=== PATIENT | female | born 1945 | race Caucasian/White ===

== ENCOUNTER 2020-09-19 18:05 | Observation (INO) | payer MEDICARE, OTHER ==
[2020-09-19 18:42] LABS: #Basophils 0.1 thou/uL (0.0-0.2); #Eosinphils 0.3 thou/uL (0.0-0.7); #Lymphocytes 2.9 thou/uL (1.20-3.40); #Monocytes 0.6 thou/uL (0.11-0.59); #Neutrophils 3.8 thou/uL (1.40-6.50); %Basophils 1.1 % (0.0-1.0); %Lymphocytes 38.1 % (21.0-51.0); %Monocytes 8.3 % (0.0-10.0); %Neutrophils 48.6 % (42.0-75.0); Hemoglobin 13.3 g/dL (12.0-16.0); Mean Corpuscular HGB CONC 34.2 g/dL (32.0-36.0); Mean Corpuscular Hemoglobin 30.5 pg (27.0-31.0); Mean Corpuscular Volume 89.2 fL (78.0-98.0); Mean Platelet Volume 7.9 fL (7.4-10.4); Platelet Count 214 thou/uL (130-400); Red Blood Cell (RBC) Count 4.34 mill/uL (4.20-5.40); White Blood Cell (WBC) Count 7.7 thou/uL (4.8-10.8)
[2020-09-19 19:05] LABS: ALT (SGPT) 25 U/L (8-55); AST (SGOT) 20 U/L (5-34); Alkaline Phosphatase 68 U/L (40-110); Anion Gap 15 mmol/L (10-20); BUN (Urea Nitrogen) 19 mg/dL (9.8-20.1); Bilirubin, Total 0.3 mg/dL (0.2-1.2); Calc. Creatinine Clearance 0 mL/min (70-130); Calcium 9.5 mg/dL (7.8-10.44); Carbon Dioxide 26 mmol/L (23-31); Chloride 105 mmol/L (98-107); Globulin 2.8 g/dL (2.4-3.5); Glucose 130 mg/dL (83-110); Lipase 28 U/L (8-78); Potassium 4.7 mmol/L (3.5-5.1); Protein, Total 6.8 g/dL (5.8-8.1); Sodium 141 mmol/L (136-145)
[2020-09-19 22:06] LABS: Troponin I 0.012 ng/mL (< 0.028)
[2020-09-19] MEDS ORDERED: Aspirin Chewable 81 MG TAB PO SCH (23:00)
[2020-09-19] MEDS ORDERED: Ondansetron ODT 4 MG TAB SL PRN (23:00)
[2020-09-19] MEDS ORDERED: Ondansetron PF 4 MG/2 ML Vial IVP PRN (23:00)
[2020-09-19 23:14] VITALS: BMI 29.5
[2020-09-20 01:28] LABS: Troponin I 0.019 ng/mL (< 0.028)
[2020-09-20 04:49] LABS: SARS-CoV-2 PCR by NAA Not Detected (NotDetected)
[2020-09-20 04:59] LABS: #Basophils 0.1 thou/uL (0.0-0.2); #Eosinphils 0.3 thou/uL (0.0-0.7); #Lymphocytes 3.2 thou/uL (1.20-3.40); #Monocytes 0.7 thou/uL (0.11-0.59); #Neutrophils 3.3 thou/uL (1.40-6.50); %Basophils 0.9 % (0.0-1.0); %Eosinophils 3.8 % (0.0-10.0); %Lymphocytes 42.2 % (21.0-51.0); %Monocytes 9.3 % (0.0-10.0); %Neutrophils 43.8 % (42.0-75.0); Hemoglobin 12.4 g/dL (12.0-16.0); Mean Corpuscular HGB CONC 33.1 g/dL (32.0-36.0); Mean Corpuscular Hemoglobin 29.7 pg (27.0-31.0); Mean Corpuscular Volume 89.7 fL (78.0-98.0); Mean Platelet Volume 8.3 fL (7.4-10.4); Platelet Count 212 thou/uL (130-400); RBC Distribution Width 11.9 % (11.5-14.5); Red Blood Cell (RBC) Count 4.17 mill/uL (4.20-5.40); White Blood Cell (WBC) Count 7.5 thou/uL (4.8-10.8)
[2020-09-20 05:21] LABS: Anion Gap 10 mmol/L (10-20); BUN (Urea Nitrogen) 20 mg/dL (9.8-20.1); Calc. Creatinine Clearance 70 mL/min (70-130); Calcium 9.1 mg/dL (7.8-10.44); Carbon Dioxide 28 mmol/L (23-31); Chloride 106 mmol/L (98-107); Glucose 139 mg/dL (83-110); Potassium 4.2 mmol/L (3.5-5.1); Sodium 140 mmol/L (136-145)
[2020-09-20] MEDS: hydrALAZINE 20 MG/ML VIAL SLOW IVP PRN ×2 (08:19→16:29)
[2020-09-20] MEDS: Aspirin Chewable 81 MG TAB PO SCH (08:52)
[2020-09-20] MEDS: Enoxaparin Sodium 40 MG/0.4 ML SYRINGE SC SCH (08:52)
[2020-09-20] MEDS: Amlodipine 10 MG TAB PO SCH (08:52)
[2020-09-20] MEDS ORDERED: Enoxaparin Sodium 40 MG/0.4 ML SYRINGE SC SCH (09:00)
[2020-09-20] MEDS ORDERED: Promethazine HCl 12.5 MG in Sodium Chloride 0.9% 50 ML IVPB PRN (09:12)
[2020-09-20] MEDS ORDERED: Ondansetron PF 4 MG/2 ML Vial IVP PRN (09:12)
[2020-09-20] MEDS: Acetaminophen 325 MG TAB PO PRN (10:19)
[2020-09-20] MEDS ORDERED: oxyCODONE 5 MG TAB PO SCH (10:45)
[2020-09-20] MEDS ORDERED: Iopamidol 370 76% 100 ML VIAL ONE (11:35)
[2020-09-20] MEDS ORDERED: ADENOSINE 60 MG/20 ML VIAL ONE (13:12)
[2020-09-20] MEDS: Morphine 2 MG/ML VIAL SLOW IVP PRN ×2 (13:59→19:09)
[2020-09-20] MEDS ORDERED: Polyethylene Glycol 3350 17 GM Packet PO PRN (16:15)
[2020-09-20] MEDS ORDERED: Bisacodyl 5 MG TAB PO PRN (16:15)
[2020-09-20] MEDS ORDERED: Lisinopril 20 MG TAB PO SCH (17:00)
[2020-09-20] MEDS ORDERED: Dextrose 5% in Water 1,000 ML IV PRN (17:34)
[2020-09-20] MEDS ORDERED: Dextrose 50% Abboject 50 ML SYRINGE SLOW IVP PRN (17:34)
[2020-09-20] MEDS: HumaLOG 300 UNITS/3 ML VIAL SC PRN (18:03)
[2020-09-21 05:38] LABS: #Basophils 0.1 thou/uL (0.0-0.2); #Eosinphils 0.2 thou/uL (0.0-0.7); #Lymphocytes 2.3 thou/uL (1.20-3.40); #Monocytes 0.6 thou/uL (0.11-0.59); #Neutrophils 6.2 thou/uL (1.40-6.50); %Basophils 0.7 % (0.0-1.0); %Eosinophils 2.6 % (0.0-10.0); %Lymphocytes 24.6 % (21.0-51.0); %Monocytes 6.4 % (0.0-10.0); %Neutrophils 65.6 % (42.0-75.0); Hemoglobin 13.9 g/dL (12.0-16.0); Mean Corpuscular HGB CONC 34.2 g/dL (32.0-36.0); Mean Corpuscular Hemoglobin 30.5 pg (27.0-31.0); Mean Corpuscular Volume 89.1 fL (78.0-98.0); Mean Platelet Volume 8.5 fL (7.4-10.4); Platelet Count 239 thou/uL (130-400); RBC Distribution Width 12.3 % (11.5-14.5); Red Blood Cell (RBC) Count 4.57 mill/uL (4.20-5.40); White Blood Cell (WBC) Count 9.4 thou/uL (4.8-10.8)
[2020-09-21] MEDS: Acetaminophen 325 MG TAB PO PRN (05:51)
[2020-09-21] MEDS: HumaLOG 300 UNITS/3 ML VIAL SC PRN (05:53)
[2020-09-21 06:01] LABS: Anion Gap 15 mmol/L (10-20); BUN (Urea Nitrogen) 16 mg/dL (9.8-20.1); Calc. Creatinine Clearance 62 mL/min (70-130); Calcium 9.7 mg/dL (7.8-10.44); Carbon Dioxide 25 mmol/L (23-31); Chloride 102 mmol/L (98-107); Glucose 154 mg/dL (83-110); Potassium 4.1 mmol/L (3.5-5.1); Sodium 138 mmol/L (136-145)
[2020-09-21] MEDS: Enoxaparin Sodium 40 MG/0.4 ML SYRINGE SC SCH (08:35)
[2020-09-21] MEDS: Amlodipine 10 MG TAB PO SCH (08:36)
[2020-09-21] MEDS: Aspirin Chewable 81 MG TAB PO SCH (08:36)
[2020-09-21] MEDS ORDERED: Lisinopril 20 MG TAB PO SCH (09:00)
[2020-09-21 12:25] VITALS: BP 127/60; TEMP 98.6
== END 2020-09-21 13:45 | disposition home or self-care (01) ==
LOC: ERS 18:05 → ERHOLD 20:04 → 2NO 22:47
PROVIDERS: ADMIT Student in an Organized Health Care Education/Training Program; ATTEND Emergency Medicine
DX: R07.9 Chest pain, unspecified (principal); R10.9 Unspecified abdominal pain; I10 Essential (primary) hypertension; E11.9 Type 2 diabetes mellitus without complications; G89.29 Other chronic pain; M54.9 Dorsalgia, unspecified; N28.1 Cyst of kidney, acquired; K76.0 Fatty (change of) liver, not elsewhere classified; K80.20 Calculus of gallbladder without cholecystitis without obstruction; Z87.891 Personal history of nicotine dependence; Z79.1 Long term (current) use of non-steroidal anti-inflammatories (NSAID); Z79.84 Long term (current) use of oral hypoglycemic drugs; Z79.899 Other long term (current) drug therapy; Z88.0 Allergy status to penicillin; Z93.3 Colostomy status; Z20.822 Contact with and (suspected) exposure to COVID-19
CPT/HCPCS: 71045; 74177; 78452; 80048 ×2; 80053; 82962 ×2; 83690; 84484 ×3; 85025 ×3; 93005; 93017; 94760 ×2; 96372 ×2; 96374; 96375; 96376; 99285; A9500; G0378 ×4; J2270; U0003; U0005; 36415; 36416; 87635; J0153; J0360; J1650; J1815; J2405; J2550; Q9967

== ENCOUNTER 2020-11-28 20:39 | Inpatient (IN) | payer MEDICARE ==
[2020-11-28] MEDS ORDERED: Morphine 4 MG/ML VIAL ONE ×2 (21:21→23:35)
[2020-11-28] MEDS ORDERED: Ketorolac Tromethamine 30 MG/ML VIAL ONE (21:21)
[2020-11-28 21:38] LABS: #Basophils 0.1 thou/uL (0.0-0.2); #Eosinphils 0.3 thou/uL (0.0-0.7); #Lymphocytes 2.7 thou/uL (1.20-3.40); #Monocytes 0.9 thou/uL (0.11-0.59); #Neutrophils 7.4 thou/uL (1.40-6.50); %Basophils 0.8 % (0.0-1.0); %Eosinophils 2.6 % (0.0-10.0); %Monocytes 7.7 % (0.0-10.0); Mean Corpuscular HGB CONC 34.4 g/dL (32.0-36.0); Mean Corpuscular Hemoglobin 30.9 pg (27.0-31.0); Mean Platelet Volume 7.8 fL (7.4-10.4); Platelet Count 250 thou/uL (130-400); RBC Distribution Width 12.6 % (11.5-14.5); Red Blood Cell (RBC) Count 4.52 mill/uL (4.20-5.40); White Blood Cell (WBC) Count 11.3 thou/uL (4.8-10.8)
[2020-11-28 21:53] LABS: ALT (SGPT) 29 U/L (8-55); AST (SGOT) 32 U/L (5-34); Alkaline Phosphatase 69 U/L (40-110); Anion Gap 14 mmol/L (10-20); BUN (Urea Nitrogen) 27 mg/dL (9.8-20.1); Bilirubin, Total 0.4 mg/dL (0.2-1.2); Calc. Creatinine Clearance 0 mL/min (70-130); Calcium 9.6 mg/dL (7.8-10.44); Carbon Dioxide 23 mmol/L (23-31); Chloride 105 mmol/L (98-107); Globulin 3.3 g/dL (2.4-3.5); Glucose 143 mg/dL (83-110); Potassium 4.5 mmol/L (3.5-5.1); Protein, Total 7.3 g/dL (5.8-8.1); Sodium 137 mmol/L (136-145)
[2020-11-28] MEDS ORDERED: Fentanyl 100 MCG/2 ML VIAL ONE (22:28)
[2020-11-28] MEDS ORDERED: Ondansetron PF 4 MG/2 ML Vial ONE (23:36)
[2020-11-29] MEDS ORDERED: Ondansetron PF 4 MG/2 ML Vial IVP PRN (00:36)
[2020-11-29] MEDS ORDERED: HumaLOG 300 UNITS/3 ML VIAL SC PRN (00:36)
[2020-11-29] MEDS ORDERED: Dextrose 50% Abboject 50 ML SYRINGE SLOW IVP PRN (00:36)
[2020-11-29] MEDS ORDERED: hydrALAZINE 20 MG/ML VIAL SLOW IVP PRN (00:36)
[2020-11-29] MEDS ORDERED: Ondansetron ODT 4 MG TAB PO PRN (00:36)
[2020-11-29] MEDS ORDERED: Morphine 2 MG/ML VIAL SLOW IVP PRN (00:36)
[2020-11-29] MEDS ORDERED: Dextrose 5% in Water 1,000 ML IV PRN (00:36)
[2020-11-29] MEDS ORDERED: Ketorolac Tromethamine 30 MG/ML VIAL IVP SCH (00:36)
[2020-11-29] MEDS ORDERED: Zolpidem Tartrate 5 MG TAB PO PRN (00:36)
[2020-11-29 00:40] VITALS: BMI 29.8
[2020-11-29] MEDS: Acetaminophen 325 MG TAB PO SCH ×4 (01:03→18:43)
[2020-11-29] MEDS: traMADol HCl 50 MG TAB PO PRN ×3 (01:03→12:46)
[2020-11-29] MEDS: Ibuprofen 200 MG TAB PO SCH ×3 (01:04→18:42)
[2020-11-29] MEDS: Sodium Chloride 0.9% 1,000 ML IV SCH ×2 (01:10→08:15)
[2020-11-29 02:36] LABS: SARS-CoV-2 NAA Rapid Test Not Detected (NotDetected)
[2020-11-29] MEDS: Cyclobenzaprine 10 MG TAB PO PRN (04:11)
[2020-11-29 06:25] LABS: #Eosinphils 0.2 thou/uL (0.0-0.7); #Lymphocytes 2.8 thou/uL (1.20-3.40); #Monocytes 0.9 thou/uL (0.11-0.59); #Neutrophils 6.1 thou/uL (1.40-6.50); %Basophils 0.4 % (0.0-1.0); %Eosinophils 2.2 % (0.0-10.0); %Lymphocytes 27.9 % (21.0-51.0); %Monocytes 8.8 % (0.0-10.0); %Neutrophils 60.7 % (42.0-75.0); Hemoglobin 12.5 g/dL (12.0-16.0); Mean Corpuscular HGB CONC 33.6 g/dL (32.0-36.0); Mean Corpuscular Hemoglobin 30.4 pg (27.0-31.0); Mean Corpuscular Volume 90.5 fL (78.0-98.0); Mean Platelet Volume 7.9 fL (7.4-10.4); Platelet Count 212 thou/uL (130-400); RBC Distribution Width 12.4 % (11.5-14.5); Red Blood Cell (RBC) Count 4.11 mill/uL (4.20-5.40)
[2020-11-29 06:34] LABS: PTT 29.9 sec (22.9-36.1); Prothrombin Time 13.8 sec (12.0-14.7)
[2020-11-29 06:45] LABS: Phosphorus 4.8 mg/dL (2.3-4.7)
[2020-11-29 06:46] LABS: Anion Gap 12 mmol/L (10-20); BUN (Urea Nitrogen) 30 mg/dL (9.8-20.1); Calc. Creatinine Clearance 50 mL/min (70-130); Calcium 9.2 mg/dL (7.8-10.44); Carbon Dioxide 25 mmol/L (23-31); Chloride 107 mmol/L (98-107); Glucose 146 mg/dL (83-110); Magnesium 1.9 mg/dL (1.6-2.6); Potassium 4.1 mmol/L (3.5-5.1); Sodium 140 mmol/L (136-145)
[2020-11-29] MEDS ORDERED: Clindamycin/D5W 900 MG in Premix Bag 1 BAG IVPB SCH (07:15)
[2020-11-29] MEDS: Famotidine 20 MG TAB PO SCH ×2 (08:08→21:07)
[2020-11-29] MEDS: Polyethylene Glycol 3350 17 GM Packet PO SCH (08:11)
[2020-11-29] MEDS: Senokot S 8.6-50 MG TAB PO SCH ×2 (08:11→21:07)
[2020-11-29] MEDS: traMADol HCl 50 MG TAB PO SCH ×3 (11:06→21:06)
[2020-11-29] MEDS ORDERED: Ondansetron HCl/PF 4 MG/2 ML Vial IVP PRN ×2 (13:22→15:48)
[2020-11-29] MEDS ORDERED: Promethazine HCl 25 MG/ML VIAL IM PRN (13:22)
[2020-11-29] MEDS ORDERED: Promethazine HCl 25 MG/ML VIAL SLOW IVP PRN (13:22)
[2020-11-29] MEDS ORDERED: Fentanyl 100 MCG/2 ML VIAL ONE ×2 (13:25→15:55)
[2020-11-29] MEDS ORDERED: Clindamycin/D5W 900 mg/50 ml Premix Bag ONE (13:33)
[2020-11-29] MEDS ORDERED: Ondansetron PF 4 MG/2 ML Vial ONE (14:16)
[2020-11-29] MEDS ORDERED: Glycopyrrolate 0.2 MG/ML 5 ML SYRINGE ONE (14:16)
[2020-11-29] MEDS ORDERED: Lidocaine 1% PF 5 ML VIAL ONE (14:16)
[2020-11-29] MEDS ORDERED: Rocuronium Bromide 10 MG/ML (10ML VIAL) ONE (14:16)
[2020-11-29] MEDS ORDERED: Bupivacaine HCl 0.5%/Epinephrine 1:200,000/PF 30 ml Vial ONE (14:16)
[2020-11-29] MEDS ORDERED: Metoclopramide HCl 10 MG/2 ML VIAL ONE (14:16)
[2020-11-29] MEDS ORDERED: PROPOFOL 200 MG/20 ML VIAL ONE (14:16)
[2020-11-29] MEDS ORDERED: PHENYLEPHRINE-NS 100 MCG/ML 10 ML SYRINGE ONE (14:16)
[2020-11-29] MEDS: Clindamycin/D5W 900 MG in Premix Bag 1 BAG IVPB SCH (21:06)
[2020-11-30] MEDS: Ibuprofen 200 MG TAB PO SCH ×3 (00:25→17:02)
[2020-11-30] MEDS: Acetaminophen 325 MG TAB PO SCH ×4 (00:25→17:02)
[2020-11-30] MEDS: traMADol HCl 50 MG TAB PO SCH ×3 (05:04→17:02)
[2020-11-30] MEDS: Clindamycin/D5W 900 MG in Premix Bag 1 BAG IVPB SCH (05:06)
[2020-11-30] MEDS: HumaLOG 300 UNITS/3 ML VIAL SC PRN ×3 (05:11→17:11)
[2020-11-30 05:46] LABS: #Eosinphils 0.3 thou/uL (0.0-0.7); #Lymphocytes 1.9 thou/uL (1.20-3.40); #Neutrophils 7.5 thou/uL (1.40-6.50); %Basophils 0.5 % (0.0-1.0); %Eosinophils 3.1 % (0.0-10.0); %Lymphocytes 17.4 % (21.0-51.0); %Monocytes 8.9 % (0.0-10.0); %Neutrophils 70.1 % (42.0-75.0); Hemoglobin 11.5 g/dL (12.0-16.0); Mean Corpuscular HGB CONC 33.1 g/dL (32.0-36.0); Mean Corpuscular Hemoglobin 30.3 pg (27.0-31.0); Mean Corpuscular Volume 91.7 fL (78.0-98.0); Mean Platelet Volume 7.8 fL (7.4-10.4); Platelet Count 193 thou/uL (130-400); RBC Distribution Width 12.5 % (11.5-14.5); White Blood Cell (WBC) Count 10.6 thou/uL (4.8-10.8)
[2020-11-30 06:13] LABS: Anion Gap 11 mmol/L (10-20); BUN (Urea Nitrogen) 20 mg/dL (9.8-20.1); Calc. Creatinine Clearance 64 mL/min (70-130); Calcium 8.3 mg/dL (7.8-10.44); Carbon Dioxide 24 mmol/L (23-31); Chloride 104 mmol/L (98-107); Glucose 184 mg/dL (83-110); Magnesium 1.8 mg/dL (1.6-2.6); Phosphorus 2.9 mg/dL (2.3-4.7); Potassium 4.2 mmol/L (3.5-5.1); Sodium 135 mmol/L (136-145)
[2020-11-30] MEDS: Famotidine 20 MG TAB PO SCH ×2 (08:35→20:18)
[2020-11-30] MEDS: Senokot S 8.6-50 MG TAB PO SCH ×2 (08:37→20:18)
[2020-11-30] MEDS: Polyethylene Glycol 3350 17 GM Packet PO SCH (08:37)
[2020-11-30] MEDS: Cyclobenzaprine 10 MG TAB PO PRN ×2 (08:42→17:03)
[2020-11-30] MEDS ORDERED: traMADol HCl 50 MG TAB PO SCH ×2 (09:55→12:00)
[2020-11-30] MEDS: traMADol HCl 50 MG TAB PO PRN (12:09)
[2020-11-30] MEDS ORDERED: Magnesium 2 GM/50 ML 2 GM in Premix Bag 1 BAG IVPB SCH (18:00)
[2020-11-30] MEDS: HYDROcodone/Acetaminophen 7.5/325 mg Tablet PO PRN (18:38)
[2020-11-30] MEDS: Aspirin 81 mg Enteric Coated Tablet PO SCH (20:18)
[2020-11-30] MEDS: Pregabalin 50 MG CAP PO SCH (20:18)
[2020-11-30] MEDS ORDERED: Gabapentin 100 MG CAP PO SCH (21:00)
[2020-12-01] MEDS: Acetaminophen 325 MG TAB PO SCH ×3 (00:02→11:37)
[2020-12-01] MEDS: Ibuprofen 200 MG TAB PO SCH ×2 (00:02→08:57)
[2020-12-01] MEDS: traMADol HCl 50 MG TAB PO SCH ×3 (00:03→11:37)
[2020-12-01] MEDS: HYDROcodone/Acetaminophen 7.5/325 mg Tablet PO PRN ×2 (04:39→09:29)
[2020-12-01] MEDS: Aspirin 81 mg Enteric Coated Tablet PO SCH (07:52)
[2020-12-01] MEDS: Famotidine 20 MG TAB PO SCH (07:52)
[2020-12-01] MEDS: Pregabalin 50 MG CAP PO SCH (07:53)
[2020-12-01] MEDS: Senokot S 8.6-50 MG TAB PO SCH (07:53)
[2020-12-01] MEDS: Polyethylene Glycol 3350 17 GM Packet PO SCH (07:54)
[2020-12-01] MEDS ORDERED: Lisinopril/Hydrochlorothiazide 20 mg/12.5 mg Tablet PO SCH (09:00)
[2020-12-01 12:23] VITALS: BP 132/80; TEMP 98
== END 2020-12-01 15:32 | disposition swing bed (61) | DRG 522 ==
LOC: ERS 20:39 → SJJU 22:16 → OBSVTOIN 11-29 00:36
PROVIDERS: ADMIT Surgery; ATTEND Surgery
PROC: 0SRR0JA Replacement of Right Hip Joint, Femoral Surface with Synthetic Substitute, Uncemented, Open Approach (ICD-10-PCS; principal; 2020-11-29)
DX: S72.031A Displaced midcervical fracture of right femur, initial encounter for closed fracture (principal); E11.9 Type 2 diabetes mellitus without complications; I10 Essential (primary) hypertension; F32.9 Major depressive disorder, single episode, unspecified; Z20.822 Contact with and (suspected) exposure to COVID-19; F41.9 Anxiety disorder, unspecified; W18.09XA Striking against other object with subsequent fall, initial encounter; Y92.009 Unspecified place in unspecified non-institutional (private) residence as the place of occurrence of the external cause; Z88.0 Allergy status to penicillin; Z90.710 Acquired absence of both cervix and uterus; Z87.891 Personal history of nicotine dependence
CPT/HCPCS: 36415; 36416; 72170; 80048; 80053; 83735; 84100; 84484; 85025; 85610; 85730; 86850; 86900; 86901; 93005; 96374; 96375; 96376; G0378; G0390; J1815; J1885; J2270; J2405; J2704; J2765; J3010; J3475; J3490; Q0162; U0002; U0005